=== PATIENT | female | born 1960 | race Caucasian/White ===

== ENCOUNTER 2016-11-09 16:34 | Observation (INO) | payer OTHER ==
[~2016-11-09] VITALS: Ht 149.9 cm; Wt 65.5 kg
[~2016-11-09 16:34] MED LIST: ADDERALL7.5 MG PO; ALPRAZOLAM ER2 MG PO; ALPRAZOLAM0.25 M2 PO; AMOXICILLIN500 M1 PO; AUGMENTIN875 MG PO; BUSPAR15 MG PO; DITROPAN5 MG PO; FLEXERIL5 MG PO; LEVOTHYROXINE100 MCG PO; MOTRIN600 MG PO; MOTRIN800 MG PO; NOHOMEMEDS; NORCO 7.5/321 TABLET PO; OMEPRAZOLE40 M1 PO; SERTRALINE HCL100 MG PO; ULTRACET1 TABLET PO; VALIUM2 MG PO; VICODIN 5-3001 EACH PO
[2016-11-09 18:53] LABS: HEMATOCRIT 39.9 % (36.0-46.0); MCHC 33.6 G/DL (30.0-36.0); MCV 86.4 FL (83-99); MEAN PLAT.VOLUME 9.9 uM^3 (9.5-12.4); PLATELET COUNT 306 K/uL (156-360); RBC DIS.WIDTH-CV 14.9 % (11.8-14.6); RBC DIS.WIDTH-SD 46.9 % (39-53); RED BLOOD COUNT 4.62 M/uL (3.80-5.20); WHITE BLOOD COUNT 11.3 K/uL (4.1-10.2)
[2016-11-09 19:06] LABS: CHLORIDE 100 mEq/L (99-109); POTASSIUM 4.3 mEq/L (3.7-5.4); SODIUM 137 mEq/L (136-147)
[2016-11-09 19:08] LABS: GLUCOSE 93 mg/dL (70-99)
[2016-11-09 19:09] LABS: ANION GAP 14 MEQ/L (2-14)
[2016-11-09 19:10] LABS: TOTAL BILIRUBIN 0.5 mg/dL (0.0-1.0)
[2016-11-09 19:11] LABS: ALKALINE PHOSPHATASE 95 IU/L (3-129)
[2016-11-09 19:12] LABS: GFR ESTIMATE (CALCULATED) > 59 mL/min/
[2016-11-09 19:13] LABS: UREA NITROGEN (BUN) 8 mg/dL (9-23)
[2016-11-09 23:38] VITALS: BP 113/69
[2016-11-10 04:24] VITALS: BP 109/59
[2016-11-10 06:09] LABS: HEMATOCRIT 36.9 % (36.0-46.0); MCH 29.5 PG (29.0-34.0); MCHC 33.3 G/DL (30.0-36.0); MCV 88.5 FL (83-99); MEAN PLAT.VOLUME 10.1 uM^3 (9.5-12.4); PLATELET COUNT 317 K/uL (156-360); RBC DIS.WIDTH-CV 14.8 % (11.8-14.6); RBC DIS.WIDTH-SD 47.9 % (39-53); RED BLOOD COUNT 4.17 M/uL (3.80-5.20); WHITE BLOOD COUNT 9.1 K/uL (4.1-10.2)
[2016-11-10 06:41] LABS: ALKALINE PHOSPHATASE 75 IU/L (3-129); ANION GAP 10 MEQ/L (2-14); CHLORIDE 103 MEQ/L (99-109); GFR ESTIMATE (CALCULATED) > 59 mL/min/; GLUCOSE 109 mg/dL (70-99); POTASSIUM 4.4 MEQ/L (3.7-5.4); SAMPLE HEMOLYSIS CHECK 0; SAMPLE ICTERIC CHECK 0; SAMPLE LIPEMIA CHECK 0; SODIUM 137 MEQ/L (136-147); TOTAL BILIRUBIN 0.4 MG/DL (0.0-1.0); UREA NITROGEN (BUN) 12 mg/dL (9-23)
[2016-11-10 07:52] VITALS: BP 98/55
[2016-11-10] MEDS ORDERED: NAPROXEN500 MG PO (10:52)
[2016-11-10] MEDS ORDERED: AUGMENTIN875 MG PO (10:53)
[2016-11-10 12:17] VITALS: BP 110/75
== END 2016-11-10 13:17 | disposition home or self-care (01) ==
LOC: EME 16:34 → EXP 16:34 → EDOF 22:37 → 5WEST 22:37 → EDOF 22:37 → 5WEST 23:26
PROVIDERS: Internal Medicine; Nurse Practitioner Family
DX: L03.211 Cellulitis of face (principal); K08.89 Other specified disorders of teeth and supporting structures; K02.9 Dental caries, unspecified; F17.200 Nicotine dependence, unspecified, uncomplicated; Z88.2 Allergy status to sulfonamides
CPT/HCPCS: 70491; 80053; 85027; 87040; 99281; 99285; G0378; J0295; J1100; J1644; J1885; J2270; J2405; J7030; J7050; S0028

== ENCOUNTER 2016-12-14 11:53 | Emergency (ER) | payer OTHER ==
[~2016-12-14] VITALS: Ht 149.9 cm; Wt 65.5 kg
[~2016-12-14 11:53] MED LIST changes: +NAPROXEN500 MG PO
[2016-12-14 14:24] LABS: EOSINOPHIL (%) 0.8 % (0-5); EOSINOPHIL COUNT 0.1 K/uL (0-0.3); HEMATOCRIT 39.3 % (36.0-46.0); IMMATURE GRANULOCYTE (%) 0.2 % (0.0-0.7); IMMATURE GRANULOCYTE COUNT 0.2 K/uL; LYMPHOCYTE COUNT 0.9 K/uL (1.0-2.8); MCH 28.8 PG (29.0-34.0); MCHC 33.1 G/DL (30.0-36.0); MCV 86.9 FL (83-99); MEAN PLAT.VOLUME 10.1 uM^3 (9.5-12.4); MONOCYTE (%) 4.7 % (3-12); MONOCYTE COUNT 0.5 K/uL (0-0.8); NEUTROPHIL (%) 85.7 % (45-76); NEUTROPHIL COUNT 8.9 K/uL (1.8-6.4); PLATELET COUNT 294 K/uL (156-360); RBC DIS.WIDTH-CV 15.3 % (11.8-14.6); RBC DIS.WIDTH-SD 48.3 % (39-53); RED BLOOD COUNT 4.52 M/uL (3.80-5.20); WHITE BLOOD COUNT 10.3 K/uL (4.1-10.2)
[2016-12-14 14:35] LABS: CHLORIDE 106 mEq/L (99-109); POTASSIUM 4.6 mEq/L (3.7-5.4); SODIUM 139 mEq/L (136-147)
[2016-12-14 14:37] LABS: GLUCOSE 92 mg/dL (70-99)
[2016-12-14 14:38] LABS: ANION GAP 10 MEQ/L (2-14)
[2016-12-14 14:41] LABS: GFR ESTIMATE (CALCULATED) > 59 mL/min/
[2016-12-14 14:42] LABS: UREA NITROGEN (BUN) 11 mg/dL (9-23)
[2016-12-14] MEDS ORDERED: ULTRAM50 MG PO (16:17)
[2016-12-14] MEDS ORDERED: CLEOCIN300 MG PO (16:17)
[2016-12-14 16:22] VITALS: BP 111/61
[2016-12-14] MEDS ORDERED: ALPRAZOLAM1 MG PO (16:23)
[2016-12-14] MEDS ORDERED: SERTRALINE HCL100 MG PO (16:24)
[2016-12-14] MEDS ORDERED: BUSPAR15 MG PO (16:24)
== END 2016-12-14 16:35 | disposition home or self-care (01) ==
LOC: EME 11:53
PROVIDERS: Physician Assistant
DX: K02.9 Dental caries, unspecified (principal); K04.7 Periapical abscess without sinus
CPT/HCPCS: 70491; 80048; 85025; 99281; 99285; J2405; J3010; J7030